=== PATIENT | male | born 1955 | race Caucasian/White ===

== ENCOUNTER → 2018-04-06 | Outpatient (CLI) | payer BC ==
[~2018-04-06] MED LIST: AVAPRO300 MG PO; BUPROPION; CEPHALEXIN 500500 M3 PO; COREG25 MG PO; COREG3.125 MG PO; EXCEDRIN CAPLE1 EACH PO; FOLIC ACID1 MG PO; LEXAPRO 10 MG T10 M2 PO; LISINOPRIL20 MG PO; LOPERAMIDE 2 MG2 M1 PO; LYRICA; NAPROSYN500 MG PO; NEURONTIN 300300 M1 PO; NEXIUM40 MG PO; NORCO 10-325 T1 EACH PO; NORTRIPTYLINE H10 M1 PO; OXYBUTYNIN 5 MG5 M2 PO; PAMELOR; PERFOROMIS20 MCG/2 M IH; PREDNISONE 10 M10 MG PO; PROAIR HFA8.5 GM INH; PROTONIX PO; PROVENTIL HFA6.7 G1 INH; QVAR; REQUIP 1 MG TABL1 M1 PO; SEREVENT DISKU50 MCG IH; SPIRIVA INH; SYMBICORT160 MCG/4. INH; TRAZODONE HCL50 MG PO; TUDORZA PRESS400 MCG IH; VITAMIN B-1100 M1 PO; ZOCOR20 MG PO
== END ==
LOC: M.CT 07:37
DX: I71.2 Thoracic aortic aneurysm, without rupture (principal); M47.814 Spondylosis without myelopathy or radiculopathy, thoracic region; J98.4 Other disorders of lung; J98.11 Atelectasis; Z90.49 Acquired absence of other specified parts of digestive tract

== ENCOUNTER → 2019-04-18 | Outpatient (CLI) | payer OTHER | LOC: M.CT 07:43 | DX: I71.2 Thoracic aortic aneurysm, without rupture (principal); M47.814 Spondylosis without myelopathy or radiculopathy, thoracic region ==

== ENCOUNTER 2019-08-15 09:31 | Emergency (ER) | payer OTHER ==
[~2019-08-15] VITALS: Ht 185.4 cm; Wt 77.1 kg
[2019-08-15] MEDS ORDERED: LEXAPRO20 MG PO (09:45)
[2019-08-15] MEDS ORDERED: NORCO 5-325 TA1 EAC1 PO (11:21)
[2019-08-15 11:50] VITALS: BP 118/78
== END 2019-08-15 11:50 | disposition home or self-care (01) ==
LOC: M.ERS 09:31
DX: S46.001A Unspecified injury of muscle(s) and tendon(s) of the rotator cuff of right shoulder, initial encounter (principal); K58.9 Irritable bowel syndrome, unspecified; I10 Essential (primary) hypertension; J44.9 Chronic obstructive pulmonary disease, unspecified; F17.210 Nicotine dependence, cigarettes, uncomplicated; Z88.8 Allergy status to other drugs, medicaments and biological substances; Z90.49 Acquired absence of other specified parts of digestive tract; Z90.89 Acquired absence of other organs